=== PATIENT | male | born 1985 | race Caucasian/White ===

== ENCOUNTER 2017-03-28 20:05 | Emergency (ER) | payer OTHER | END 2017-03-28 21:31 | disposition left against medical advice (07) | LOC: D.ER 20:05 | DX: S69.92XA Unspecified injury of left wrist, hand and finger(s), initial encounter (principal); W45.0XXA Nail entering through skin, initial encounter; Y93.89 Activity, other specified; Y92.89 Other specified places as the place of occurrence of the external cause ==

== ENCOUNTER 2017-05-30 15:06 | Emergency (ER) | payer OTHER ==
[2017-05-30 16:33] LABS: BASOPHILS 0.2 % (0-2); EOSINOPHILS 1.1 % (0-7); HEMATOCRIT 43.4 % (42.0-54.0); HEMOGLOBIN 15.5 g/dL (13.5-17.5); IMMATURE GRANULOCYTES 0.3 % (0-5); LYMPHOCYTES 13.5 % (15-50); MCH 30.6 pg (26.0-34.0); MCHC 35.7 g/dL (31.0-37.0); MCV 85.6 fL (80.0-100.0); MEAN PLATELET VOLUME 9.7 fL (7.4-10.4); MONOCYTES 11.2 % (2-11); NEUTROPHILS 73.7 % (40-80); PLATELET COUNT 308 10x3/uL (130-400); RBC 5.07 10x6/uL (4.20-6.10); RDW 12.8 % (11.5-14.5)
== END 2017-05-30 19:52 | disposition home or self-care (01) ==
LOC: D.ER 15:06
PROVIDERS: Family Medicine
DX: S39.012A Strain of muscle, fascia and tendon of lower back, initial encounter (principal); V29.9XXA Motorcycle rider (driver) (passenger) injured in unspecified traffic accident, initial encounter; Y93.89 Activity, other specified; Y92.89 Other specified places as the place of occurrence of the external cause; S60.811A Abrasion of right wrist, initial encounter; S50.312A Abrasion of left elbow, initial encounter; F17.200 Nicotine dependence, unspecified, uncomplicated

== ENCOUNTER 2017-09-11 07:27 | Emergency (ER) | payer SELFPAY ==
[2017-09-11 08:27] LABS: ALBUMIN 3.3 g/dL (3.4-5.0); ALKALINE PHOSPHATASE 102 U/L (46-116); ALT (SGPT) 23 U/L (10-68); BILIRUBIN - TOTAL 0.35 mg/dL (0.2-1.3); CALC OSMOLALITY 276 mosm/kg (275-300); CALCIUM 8.6 mg/dL (8.5-10.1); CARBON DIOXIDE 24.4 mmol/L (21.0-32.0); CHLORIDE - SERUM 103 mmol/L (98-107); GLUCOSE 124 mg/dL (74-106); POTASSIUM - SERUM 3.7 mmol/L (3.5-5.1); PROTEIN - SERUM 7.1 g/dL (6.4-8.2); SODIUM 139 mmol/L (136-145); UREA NITROGEN 8 mg/dL (7-18); eGFR NON AFRICAN AMERICAN > 90 mL/min (90-120)
[2017-09-11 09:22] LABS: HEMATOCRIT 43.8 % (42.0-54.0); HEMOGLOBIN 15.5 g/dL (13.5-17.5); MCHC 35.4 g/dL (31.0-37.0); MCV 87.6 fL (80.0-100.0); MEAN PLATELET VOLUME 9.7 fL (7.4-10.4); PLATELET COUNT 310 10x3/uL (130-400); RDW 13.3 % (11.5-14.5); WBC 23.8 10x3/uL (4.8-10.8)
[2017-09-11 09:53] LABS: BASOPHILS 1 % (0-2); EOSINOPHILS 1 % (0-7); LYMPHOCYTES 11 % (15-50); MONOCYTES 22 % (2-11); NEUTROPHILS 63 % (40-80); PLATELET ESTIMATE NORMAL; ROULEAUX OCC
[2017-09-17 13:15] LABS: AEROBE ID Final report (())
== END 2017-09-11 09:57 | disposition home or self-care (01) ==
LOC: D.ER 07:27
PROVIDERS: Family Medicine
DX: K04.7 Periapical abscess without sinus (principal); K02.9 Dental caries, unspecified; F17.200 Nicotine dependence, unspecified, uncomplicated

== ENCOUNTER 2018-05-05 14:18 | Emergency (ER) | payer MEDICAID ==
[~2018-05-05] VITALS: Ht 170.2 cm; Wt 72.7 kg
[2018-05-05 14:27] VITALS: Ht 170.2 cm; Wt 72.7 kg
[2018-05-05] MEDS ORDERED: ULTRAM50 MG PO (15:55)
[2018-05-05 16:43] VITALS: BP 136/82
== END 2018-05-05 16:44 | disposition home or self-care (01) ==
LOC: D.ER 14:18
DX: S60.221A Contusion of right hand, initial encounter (principal); Y04.2XXA Assault by strike against or bumped into by another person, initial encounter; Y93.89 Activity, other specified; Y92.89 Other specified places as the place of occurrence of the external cause

== ENCOUNTER 2019-04-23 17:12 | Emergency (ER) | payer MEDICAID ==
[~2019-04-23] VITALS: Ht 170.2 cm; Wt 77.3 kg
[~2019-04-23 17:12] MED LIST: ULTRAM50 MG PO
[2019-04-23 17:21] VITALS: Ht 170.2 cm; Wt 77.3 kg
[2019-04-23] MEDS ORDERED: KEFLEX500 MG PO (17:54)
[2019-04-23] MEDS ORDERED: MEDROL DOSE PACK4 MG PO (17:54)
[2019-04-23 18:40] VITALS: BP 128/80
== END 2019-04-23 18:40 | disposition home or self-care (01) ==
LOC: D.ER 17:12
PROVIDERS: Family Medicine
DX: J02.9 Acute pharyngitis, unspecified (principal); J03.90 Acute tonsillitis, unspecified